=== PATIENT | female | born 1995 | race Caucasian/White ===

== ENCOUNTER → 2016-12-12 | Outpatient (CLI) | payer OTHER ==
[~2016-12-12] MED LIST: IBUP-1222 PO; OXYC-302 PO
== END | disposition home or self-care (01) ==
LOC: CFH 07:39
PROVIDERS: ATTEND Internal Medicine
DX: R42 Dizziness and giddiness (principal); R53.83 Other fatigue
CPT/HCPCS: 36415; 82306; 84439; 84443; 84481

== ENCOUNTER → 2017-01-07 | Outpatient (CLI) | payer OTHER | END | disposition home or self-care (01) | LOC: LAB 16:27 | PROVIDERS: ATTEND Obstetrics & Gynecology | DX: N91.2 Amenorrhea, unspecified (principal) | CPT/HCPCS: 36415; 84702 ==

== ENCOUNTER → 2017-04-22 | Outpatient (CLI) | payer OTHER ==
[2017-04-26 19:06] LABS: AFP VALUE 50.6 ng/mL (.); DIA MoM 0.87 (.); DIA VALUE 164.82 pg/mL (.); DSR (BY AGE) 1 IN 1111 (.); DSR (SECOND TRIMESTER) 1 IN 10000 (.); GESTAT AGE ON COLLECTION DATE 18.4 WEEKS (.); HCG VALUE 24002 mIU/mL (.); MULTIPLE GESTATION No (.); T18 RISK Not increased (.); TEST RESULTS *Screen Negative* (.); UE3 VALUE 1.64 ng/mL (.); WEIGHT 135 lbs (.)
== END | disposition home or self-care (01) ==
LOC: CFH 11:06
PROVIDERS: ATTEND Obstetrics & Gynecology
DX: Z34.80 Encounter for supervision of other normal pregnancy, unspecified trimester (principal)
CPT/HCPCS: 82105; 82677; 84702; 86336

== ENCOUNTER 2017-05-21 11:55 | Emergency (ER) | payer OTHER ==
[~2017-05-21] VITALS: Ht 162.6 cm; Wt 64.0 kg
[2017-05-21 12:38] LABS: HEMATOCRIT 37.2 % (34.6-47.8); HEMOGLOBIN 12.6 g/dL (11.7-16.4); WHITE BLOOD COUNT 9.5 x10^3/uL (3.4-10)
[2017-05-21 12:44] LABS: BLOOD UREA NITROGEN 8 mg/dL (7-18)
[2017-05-21 12:49] LABS: IS PT STATUS REG ER OR PRE ER? YES
[2017-05-21] MEDS ORDERED: PREN1TAB60 PO (13:07)
[2017-05-21 14:44] VITALS: BP 100/64
== END 2017-05-21 14:46 | disposition home or self-care (01) ==
LOC: ED 13:20
DX: O99.412 Diseases of the circulatory system complicating pregnancy, second trimester (principal); Z3A.22 22 weeks gestation of pregnancy; R00.0 Tachycardia, unspecified
CPT/HCPCS: 36415; 71010; 80048; 82040; 84439; 84443; 84484; 85025; 93005

== ENCOUNTER → 2017-06-21 | Outpatient (CLI) | payer OTHER ==
[~2017-06-21] MED LIST changes: +PREN1TAB60 PO
[2017-06-21 13:13] LABS: BASOPHILS # (AUTO) 0.02 x10^3/uL (0-0.1); BASOPHILS % (AUTO) 0 % (0-1); EOSINOPHILS # (AUTO) 0.04 x10^3/uL (0-0.4); EOSINOPHILS % (AUTO) 1 % (1-7); LYMPHOCYTES # (AUTO) 2.02 x10^3/uL (1-3.4); LYMPHOCYTES % (AUTO) 27 % (22-44); MD NO; MEAN CORPUSCULAR HEMOGLOBIN 28.9 pg (27.0-34.8); MEAN CORPUSCULAR HGB CONC 33.2 g/dL (32.4-35.8); MEAN PLATELET VOLUME 8.5 fL (7.4-10.4); MONOCYTES # (AUTO) 0.46 x10^3/uL (0.2-0.8); MONOCYTES % (AUTO) 6 % (2-9); NEUTROPHILS # (AUTO) 5.06 x10^3/uL (1.8-6.8); NEUTROPHILS % (AUTO) 67 % (42-75); PLATELET COUNT 216 x10^3/uL (130-400); RED BLOOD COUNT 4.12 x10^6/uL (3.82-5.3); RED CELL DISTRIBUTION WIDTH 13.1 % (9.6-15.2)
== END ==
LOC: CFH 07:38
PROVIDERS: ATTEND Obstetrics & Gynecology
DX: Z34.80 Encounter for supervision of other normal pregnancy, unspecified trimester (principal); Z3A.00 Weeks of gestation of pregnancy not specified
CPT/HCPCS: 36415; 82950; 85025; 86592

== ENCOUNTER 2017-07-29 09:55 | Inpatient (IN) | payer OTHER ==
[~2017-07-29] VITALS: Ht 162.6 cm; Wt 69.0 kg
[2017-07-29 10:25] VITALS: BP 109/59
[2017-07-29] MEDS ORDERED: LACTATED RINGERS 1,000 ML IVBOLUS ONE (11:30)
[2017-07-29 11:44] LABS: MICROSCOPIC AUTO
[2017-07-29] MEDS ORDERED: ONDANSETRON 2MG/ML, 2ML ONE ×2 (12:04→21:24)
[2017-07-29] MEDS: ONDANSETRON 2MG/ML, 2ML IVPush PRN ×2 (12:12→21:26)
[2017-07-29] MEDS ORDERED: AMPICILLIN 2 GM in SODIUM CHLORIDE 0.9% 100 ML IVPB STA (12:35)
[2017-07-29 12:40] LABS: BASOPHILS # (AUTO) 0.02 x10^3/uL (0-0.1); BASOPHILS % (AUTO) 0 % (0-1); EOSINOPHILS # (AUTO) 0.03 x10^3/uL (0-0.4); EOSINOPHILS % (AUTO) 0 % (1-7); LYMPHOCYTES # (AUTO) 2.06 x10^3/uL (1-3.4); LYMPHOCYTES % (AUTO) 24 % (22-44); MD NO; MEAN CORPUSCULAR HEMOGLOBIN 27.9 pg (27.0-34.8); MEAN CORPUSCULAR HGB CONC 33.3 g/dL (32.4-35.8); MEAN CORPUSCULAR VOLUME 83.8 fL (80-100); MEAN PLATELET VOLUME 7.6 fL (7.4-10.4); MONOCYTES # (AUTO) 0.51 x10^3/uL (0.2-0.8); MONOCYTES % (AUTO) 6 % (2-9); NEUTROPHILS # (AUTO) 5.89 x10^3/uL (1.8-6.8); NEUTROPHILS % (AUTO) 69 % (42-75); PLATELET COUNT 216 x10^3/uL (130-400); RED BLOOD COUNT 3.93 x10^6/uL (3.82-5.3); RED CELL DISTRIBUTION WIDTH 11.8 % (9.6-15.2)
[2017-07-29 12:53] LABS: ALANINE AMINOTRANSFERASE 14 U/L (12-78); ALBUMIN 2.6 g/dL (3.4-5.0); ANION GAP 7 mmol/L (5-15); CHLORIDE 110 mmol/L (98-107); CREATININE 0.42 mg/dL (0.55-1.02)
[2017-07-29 12:55] LABS: ALKALINE PHOSPHATASE 60 U/L (45-117); BILIRUBIN,TOTAL 0.6 mg/dL (0.2-1.0)
[2017-07-29] MEDS ORDERED: BETAMETHASONE 6 MG/ML, 5ML IM ONE (12:59)
[2017-07-29] MEDS ORDERED: MAGNESIUM SULFATE PMX 4GM/100M 100 ML IVPB ONE (13:00)
[2017-07-29] MEDS: BETAMETHASONE 6 MG/ML, 5ML IM SCH (13:05)
[2017-07-29] MEDS ORDERED: MAGNESIUM SULFATE PMX 4GM/100M 100 ML ONE (13:09)
[2017-07-29] MEDS ORDERED: MAGNESIUM SULF. PMX 20GM/500ML 500 ML IV ONE ×2 (13:09→23:50)
[2017-07-29] MEDS: MAGNESIUM SULF. PMX 20GM/500ML 500 ML IV SCH ×2 (13:45→23:52)
[2017-07-29 13:56] LABS: RAPID INFLUENZA A Negative (Negative); RAPID INFLUENZA B Negative (Negative)
[2017-07-29] MEDS ORDERED: NITROFURANTOIN (MACROBID) 100 MG CAPSULE ONE (14:51)
[2017-07-29] MEDS: AMPICILLIN 1 GM in SODIUM CHLORIDE 0.9% 50 ML IVPB SCH ×2 (17:52→22:01)
[2017-07-29] MEDS: NITROFURANTOIN (MACROBID) 100 MG CAPSULE PO SCH (18:21)
[2017-07-30] MEDS: AMPICILLIN 1 GM in SODIUM CHLORIDE 0.9% 50 ML IVPB SCH ×6 (02:03→21:56)
[2017-07-30] MEDS ORDERED: ONDANSETRON 2MG/ML, 2ML ONE (04:27)
[2017-07-30] MEDS: ONDANSETRON 2MG/ML, 2ML IVPush PRN (04:28)
[2017-07-30] MEDS ORDERED: NITROFURANTOIN (MACROBID) 100 MG CAPSULE ONE ×2 (06:06→17:57)
[2017-07-30] MEDS: NITROFURANTOIN (MACROBID) 100 MG CAPSULE PO SCH ×2 (06:07→18:02)
[2017-07-30 07:08] VITALS: BP 104/57
[2017-07-30] MEDS ORDERED: MAGNESIUM SULF. PMX 20GM/500ML 500 ML IV ONE ×2 (10:46→21:15)
[2017-07-30] MEDS: MAGNESIUM SULF. PMX 20GM/500ML 500 ML IV SCH ×2 (11:02→21:21)
[2017-07-30] MEDS: BETAMETHASONE 6 MG/ML, 5ML IM SCH (13:13)
[2017-07-30 19:30] VITALS: BP 99/58
[2017-07-30] MEDS ORDERED: LACTATED RINGERS 1,000 ML IV SCH (20:30)
[2017-07-31] MEDS: AMPICILLIN 1 GM in SODIUM CHLORIDE 0.9% 50 ML IVPB SCH ×2 (02:21→06:00)
[2017-07-31] MEDS ORDERED: MAGNESIUM SULF. PMX 20GM/500ML 500 ML IV ONE (06:24)
[2017-07-31] MEDS ORDERED: NITROFURANTOIN (MACROBID) 100 MG CAPSULE ONE ×2 (06:29→19:11)
[2017-07-31] MEDS: NITROFURANTOIN (MACROBID) 100 MG CAPSULE PO SCH (06:31)
[2017-07-31] MEDS: MAGNESIUM SULF. PMX 20GM/500ML 500 ML IV SCH (07:58)
[2017-07-31 08:14] VITALS: BP 94/57
[2017-07-31] MEDS ORDERED: PRENATAL VIT/IRON/FA 1 EACH TABLET ONE (08:26)
[2017-07-31] MEDS: PRENATAL VIT/IRON/FA 1 EACH TABLET PO SCH (09:33)
[2017-08-01 07:58] VITALS: BP 109/61
[2017-08-01] MEDS ORDERED: PRENATAL VIT/IRON/FA 1 EACH TABLET ONE (08:34)
[2017-08-01] MEDS: PRENATAL VIT/IRON/FA 1 EACH TABLET PO SCH (08:36)
[2017-08-01] MEDS ORDERED: NIFE20CA PO (14:01)
== END 2017-08-01 14:40 | disposition home or self-care (01) | DRG 778 ==
LOC: LDOP 09:55 → LDIP 12:44
PROVIDERS: ADMIT Obstetrics & Gynecology; ATTEND Obstetrics & Gynecology
DX: O60.03 Preterm labor without delivery, third trimester (principal); O99.89 Other specified diseases and conditions complicating pregnancy, childbirth and the puerperium; J45.909 Unspecified asthma, uncomplicated; O99.513 Diseases of the respiratory system complicating pregnancy, third trimester; R19.7 Diarrhea, unspecified; Z3A.32 32 weeks gestation of pregnancy
CPT/HCPCS: 36415; 76805; 80053; 81001; 82731; 83735; 85025; 87081; 87086; 87400; J0290; J0702; J2405; J3475; J7120

== ENCOUNTER 2017-08-04 19:03 | Outpatient (CLI) | payer OTHER ==
[~2017-08-04] VITALS: Ht 162.6 cm; Wt 69.1 kg
[~2017-08-04 19:03] MED LIST changes: +NIFE20CA PO
[2017-08-04] MEDS ORDERED: ACETAMINOPHEN 325 MG TABLET ONE (19:29)
[2017-08-04] MEDS ORDERED: ACETAMINOPHEN 325 MG TABLET PO PRN (19:30)
[2017-08-04 19:50] VITALS: BP 106/53
[2017-08-04 19:56] LABS: MICROSCOPIC AUTO
[2017-08-04 19:56] LABS: AMNISURE NEGATIVE (NEGATIVE)
== END 2017-08-04 20:37 | disposition home or self-care (01) ==
LOC: LDOP 19:03
PROVIDERS: ATTEND Obstetrics & Gynecology
DX: O42.913 Preterm premature rupture of membranes, unspecified as to length of time between rupture and onset of labor, third trimester (principal); Z3A.33 33 weeks gestation of pregnancy
CPT/HCPCS: 59025; 81001; 84112; 87086; 99211; G0463

== ENCOUNTER 2017-08-17 12:34 | Emergency (ER) | payer OTHER ==
[~2017-08-17] VITALS: Ht 162.6 cm; Wt 69.9 kg
[2017-08-17 12:41] VITALS: BP 111/75
[2017-08-17] MEDS ORDERED: ACETAMINOPHEN 500 MG TABLET ONE (13:15)
[2017-08-17] MEDS ORDERED: AMOXICILLIN 500 MG CAPSULE PO ONE (13:30)
[2017-08-17] MEDS ORDERED: ACETAMINOPHEN 500 MG TABLET PO ONE (13:30)
== END 2017-08-17 13:46 | disposition home or self-care (01) ==
LOC: ED 13:00
DX: O26.893 Other specified pregnancy related conditions, third trimester (principal); K08.89 Other specified disorders of teeth and supporting structures; K02.9 Dental caries, unspecified; Z3A.35 35 weeks gestation of pregnancy
CPT/HCPCS: 99283

== ENCOUNTER 2017-08-25 15:57 | Outpatient (CLI) | payer OTHER ==
[~2017-08-25] VITALS: Ht 162.6 cm; Wt 69.0 kg
[2017-08-25 16:02] VITALS: BP 111/71
[2017-08-25 16:51] LABS: CULTURE INDICATED? YES; MICROSCOPIC INDICATED
== END 2017-08-25 18:20 | disposition home or self-care (01) ==
LOC: LDOP 15:57
PROVIDERS: ATTEND Obstetrics & Gynecology
DX: O26.893 Other specified pregnancy related conditions, third trimester (principal); R10.9 Unspecified abdominal pain; Z3A.36 36 weeks gestation of pregnancy
CPT/HCPCS: 59025; 81001; 87086; 99211; G0463

== ENCOUNTER 2017-09-02 10:00 | Observation (INO) | payer OTHER ==
[~2017-09-02] VITALS: Ht 162.6 cm; Wt 69.1 kg
[2017-09-02 11:38] LABS: CULTURE INDICATED? YES; MICROSCOPIC INDICATED
[2017-09-02 11:46] LABS: AMNISURE NEGATIVE (NEGATIVE)
[2017-09-02] MEDS ORDERED: ONDANSETRON ODT 4 MG ONE (12:47)
[2017-09-02] MEDS ORDERED: ONDANSETRON ODT 4 MG PO ONE (13:00)
== END 2017-09-02 14:30 | disposition home or self-care (01) ==
LOC: LDOP 10:00 → LDIP 13:44
PROVIDERS: ADMIT Obstetrics & Gynecology; ATTEND Obstetrics & Gynecology
DX: O26.893 Other specified pregnancy related conditions, third trimester (principal); R10.9 Unspecified abdominal pain; O36.8130 Decreased fetal movements, third trimester, not applicable or unspecified; Z3A.00 Weeks of gestation of pregnancy not specified
CPT/HCPCS: 59025; 76815; 81001; 84112; 87086; 89060; G0378; Q0162; 99211; G0463; Q0114

== ENCOUNTER 2017-09-04 16:18 | Inpatient (IN) | payer OTHER ==
[~2017-09-04] VITALS: Ht 162.6 cm; Wt 70.9 kg
[2017-09-04 16:25] VITALS: BP 117/69
[2017-09-04] MEDS: LACTATED RINGERS 1,000 ML IV SCH (16:45)
[2017-09-04] MEDS ORDERED: OXYTOCIN 30U/ 0.9% NaCL 500ML 500 ML IV ONE (16:45)
[2017-09-04] MEDS ORDERED: OXYTOCIN 30U/ 0.9% NaCL 500ML 500 ML ONE (16:51)
[2017-09-04] MEDS ORDERED: LIDOCAINE 1%, 20ML ONE (16:51)
[2017-09-04] MEDS ORDERED: NEWBORN KIT ONE (16:51)
[2017-09-04] MEDS ORDERED: MISOPROSTOL 200 MCG TABLET ONE (16:51)
[2017-09-04] MEDS ORDERED: FENTANYL PF 100 MCG/2ML IVPush PRN (17:00)
[2017-09-04] MEDS ORDERED: CALCIUM CARBONATE 500 MG TAB.CHEW PO PRN ×2 (17:00→23:30)
[2017-09-04] MEDS ORDERED: ONDANSETRON 2MG/ML, 2ML IVPush PRN (17:00)
[2017-09-04 17:02] VITALS: BP 117/69
[2017-09-04 17:32] LABS: BASOPHILS % (AUTO) 1 % (0-1); EOSINOPHILS # (AUTO) 0.02 x10^3/uL (0-0.4); EOSINOPHILS % (AUTO) 0 % (1-7); LYMPHOCYTES # (AUTO) 2.37 x10^3/uL (1-3.4); LYMPHOCYTES % (AUTO) 27 % (22-44); MD NO; MEAN CORPUSCULAR HEMOGLOBIN 27.3 pg (27.0-34.8); MEAN CORPUSCULAR HGB CONC 33.3 g/dL (32.4-35.8); MEAN CORPUSCULAR VOLUME 81.9 fL (80-100); MEAN PLATELET VOLUME 8.2 fL (7.4-10.4); MONOCYTES # (AUTO) 0.56 x10^3/uL (0.2-0.8); MONOCYTES % (AUTO) 6 % (2-9); NEUTROPHILS # (AUTO) 5.86 x10^3/uL (1.8-6.8); NEUTROPHILS % (AUTO) 66 % (42-75); PLATELET COUNT 213 x10^3/uL (130-400); RED BLOOD COUNT 3.94 x10^6/uL (3.82-5.3); RED CELL DISTRIBUTION WIDTH 12.4 % (9.6-15.2)
[2017-09-04] MEDS ORDERED: LACTATED RINGERS 1,000 ML IV SCH ×2 (17:36→18:19)
[2017-09-04] MEDS ORDERED: FENTANYL/BUPIV./NS/PF 250 ML EPIDCONT SCH ×2 (17:36→18:19)
[2017-09-04] MEDS ORDERED: FENTANYL/BUPIV./NS/PF 250 ML EPIDCONT ONE (17:55)
[2017-09-04] MEDS ORDERED: LIDOCAINE-MPF 2% ,5ML ONE (17:55)
[2017-09-04] MEDS ORDERED: LACTATED RINGERS 1,000 ML IVBOLUS PRN ×2 (18:00→18:30)
[2017-09-04] MEDS ORDERED: EPHEDRINE 50 MG/ML, 1ML IVPush PRN (18:30)
[2017-09-04] MEDS ORDERED: NALOXONE 0.4 MG/ML, 1ML IVPush PRN (18:30)
[2017-09-04] MEDS ORDERED: OXYTOCIN 30U/ 0.9% NaCL 500ML 500 ML IV PRN (20:44)
[2017-09-04] MEDS: OXYTOCIN 30U/ 0.9% NaCL 500ML 500 ML IV SCH (23:06)
[2017-09-04] MEDS ORDERED: ONDANSETRON 2MG/ML, 2ML IV PRN (23:30)
[2017-09-04] MEDS ORDERED: MISOPROSTOL 200 MCG TABLET PR PRN (23:30)
[2017-09-04] MEDS ORDERED: ACETAMINOPHEN 325 MG TABLET PO PRN ×2 (23:30)
[2017-09-04] MEDS ORDERED: BISACODYL 10 MG SUPP PR PRN (23:30)
[2017-09-04] MEDS ORDERED: MAGNESIUM HYDROXIDE 8%, 30ML UDC PO PRN (23:30)
[2017-09-05] VITALS (15 sets, daily range): BP systolic 97–119; BP diastolic 58–74
[2017-09-05] MEDS ORDERED: IBUPROFEN 600 MG TABLET ONE (00:30)
[2017-09-05] MEDS: IBUPROFEN 600 MG TABLET PO PRN ×4 (00:32→21:01)
[2017-09-05] MEDS: OXYTOCIN 30U/ 0.9% NaCL 500ML 500 ML IV SCH ×20 (00:32→21:55)
[2017-09-05] MEDS: LACTATED RINGERS 1,000 ML IV SCH ×3 (00:45→11:37)
[2017-09-05] MEDS: D5%-LACTATED RINGERS 1,000 ML IV SCH ×3 (00:45→08:45)
[2017-09-05] MEDS: PRENATAL VIT/IRON/FA 1 EACH TABLET PO SCH (07:24)
[2017-09-05] MEDS: HYDROcodone/APAP 5/325 TABLET PO PRN ×4 (07:24→21:01)
[2017-09-05] MEDS: DOCUSATE 100 MG CAPSULE PO PRN ×2 (07:24→21:01)
[2017-09-05 07:26] LABS: BASOPHILS # (AUTO) 0.04 x10^3/uL (0-0.1); BASOPHILS % (AUTO) 0 % (0-1); EOSINOPHILS # (AUTO) 0.03 x10^3/uL (0-0.4); EOSINOPHILS % (AUTO) 0 % (1-7); LYMPHOCYTES # (AUTO) 2.39 x10^3/uL (1-3.4); LYMPHOCYTES % (AUTO) 26 % (22-44); MD NO; MEAN CORPUSCULAR HEMOGLOBIN 26.9 pg (27.0-34.8); MEAN CORPUSCULAR HGB CONC 32.9 g/dL (32.4-35.8); MEAN CORPUSCULAR VOLUME 81.6 fL (80-100); MEAN PLATELET VOLUME 7.5 fL (7.4-10.4); MONOCYTES % (AUTO) 5 % (2-9); NEUTROPHILS % (AUTO) 68 % (42-75); PLATELET COUNT 178 x10^3/uL (130-400); RED BLOOD COUNT 3.11 x10^6/uL (3.82-5.3); RED CELL DISTRIBUTION WIDTH 12.5 % (9.6-15.2)
[2017-09-05] MEDS ORDERED: DIPHENHYDRAMINE 50 MG CAPSULE PO ONE (10:30)
[2017-09-05] MEDS ORDERED: ACETAMINOPHEN 325 MG TABLET PO ONE (10:30)
[2017-09-05 16:07] LABS: BASOPHILS # (AUTO) 0.03 x10^3/uL (0-0.1); BASOPHILS % (AUTO) 0 % (0-1); EOSINOPHILS # (AUTO) 0.03 x10^3/uL (0-0.4); EOSINOPHILS % (AUTO) 0 % (1-7); LYMPHOCYTES # (AUTO) 2.53 x10^3/uL (1-3.4); LYMPHOCYTES % (AUTO) 29 % (22-44); MD NO; MEAN CORPUSCULAR HEMOGLOBIN 27.7 pg (27.0-34.8); MEAN CORPUSCULAR HGB CONC 33.3 g/dL (32.4-35.8); MEAN CORPUSCULAR VOLUME 83.2 fL (80-100); MEAN PLATELET VOLUME 7.6 fL (7.4-10.4); MONOCYTES # (AUTO) 0.57 x10^3/uL (0.2-0.8); MONOCYTES % (AUTO) 7 % (2-9); NEUTROPHILS # (AUTO) 5.51 x10^3/uL (1.8-6.8); NEUTROPHILS % (AUTO) 64 % (42-75); PLATELET COUNT 167 x10^3/uL (130-400); RED BLOOD COUNT 3.11 x10^6/uL (3.82-5.3); RED CELL DISTRIBUTION WIDTH 13.4 % (9.6-15.2)
[2017-09-06] MEDS: LACTATED RINGERS 1,000 ML IV SCH ×2 (00:45→05:05)
[2017-09-06] MEDS: HYDROcodone/APAP 5/325 TABLET PO PRN ×3 (05:04→14:27)
[2017-09-06 07:25] VITALS: BP 106/65
[2017-09-06] MEDS: IBUPROFEN 600 MG TABLET PO PRN ×2 (07:35→14:27)
[2017-09-06] MEDS: DOCUSATE 100 MG CAPSULE PO PRN (07:36)
[2017-09-06] MEDS: PRENATAL VIT/IRON/FA 1 EACH TABLET PO SCH (07:36)
[2017-09-06] MEDS ORDERED: IBUP-1222 PO (16:35)
== END 2017-09-06 17:35 | disposition home or self-care (01) | DRG 774 ==
LOC: LDOP 16:18 → LDIP 16:45 → 2NW 09-05 02:03
PROVIDERS: ADMIT Obstetrics & Gynecology; ATTEND Obstetrics & Gynecology
PROC: 10907ZC Drainage of Amniotic Fluid, Therapeutic from Products of Conception, Via Natural or Artificial Opening (ICD-10-PCS; principal; 2017-09-04)
PROC: 10E0XZZ Delivery of Products of Conception, External Approach (ICD-10-PCS; 2017-09-04)
DX: O72.1 Other immediate postpartum hemorrhage (principal); O76 Abnormality in fetal heart rate and rhythm complicating labor and delivery; Z37.0 Single live birth; Z3A.37 37 weeks gestation of pregnancy; Z80.0 Family history of malignant neoplasm of digestive organs; Z80.1 Family history of malignant neoplasm of trachea, bronchus and lung
CPT/HCPCS: 36415; 85025; 86850; 86900; 86923; J2405; J2590; J3010; J7120; J7121; P9016

== ENCOUNTER 2018-07-17 10:48 | Emergency (ER) | payer MEDICAID, OTHER ==
[~2018-07-17] VITALS: Ht 160 cm; Wt 65.0 kg
[2018-07-17] MEDS ORDERED: DIPHENHYDRAMINE 50 MG/ML, 1ML IVPush ONE (11:00)
[2018-07-17] MEDS ORDERED: SODIUM CHLORIDE 0.9% 1,000ML IVBOLUS ONE (11:00)
[2018-07-17] MEDS ORDERED: KETOROLAC 30 MG/1 ML IVPush ONE (11:00)
[2018-07-17] MEDS ORDERED: PROCHLORPERAZINE 5 MG/ML, 2ML IVPush ONE (11:00)
[2018-07-17] MEDS ORDERED: SODIUM CHLORIDE FLUSH 10ML SYR IVF ONE (11:00)
[2018-07-17] MEDS ORDERED: DIPHENHYDRAMINE 50 MG/ML, 1ML ONE (11:01)
[2018-07-17] MEDS ORDERED: KETOROLAC 30 MG/1 ML ONE (11:01)
[2018-07-17] MEDS ORDERED: PROCHLORPERAZINE 5 MG/ML, 2ML ONE (11:01)
--- NOTE | 2018-07-17 11:10 | NUR ---
PT REPORTS A HEADACHE AND LEFT SIDED BLURRY VISION. PT ALSO FELT SOME NUMNESS ON HER LEFT ARM. PT SEEN BY NATALYA CHOUDHARY. NO CODE NEURO AT THIS TIME. LAB IN ROOM. FAMILY IN ROOM. CALL LIGHT IN PLACE. WILL CONTINUE TO MONITOR.
[2018-07-17 11:25] LABS: BASOPHILS # (AUTO) 0.03 x10^3/uL (0-0.1); BASOPHILS % (AUTO) 0 % (0-1); EOSINOPHILS # (AUTO) 0.06 x10^3/uL (0-0.4); EOSINOPHILS % (AUTO) 1 % (1-7); LYMPHOCYTES # (AUTO) 2.21 x10^3/uL (1-3.4); LYMPHOCYTES % (AUTO) 35 % (22-44); MD NO; MEAN CORPUSCULAR HEMOGLOBIN 27.3 pg (27.0-34.8); MEAN CORPUSCULAR HGB CONC 33.3 g/dL (32.4-35.8); MEAN CORPUSCULAR VOLUME 81.9 fL (80-100); MEAN PLATELET VOLUME 7.8 fL (7.4-10.4); MONOCYTES # (AUTO) 0.45 x10^3/uL (0.2-0.8); MONOCYTES % (AUTO) 7 % (2-9); NEUTROPHILS # (AUTO) 3.66 x10^3/uL (1.8-6.8); NEUTROPHILS % (AUTO) 57 % (42-75); PLATELET COUNT 307 x10^3/uL (130-400); RED BLOOD COUNT 4.95 x10^6/uL (3.82-5.3); RED CELL DISTRIBUTION WIDTH 15.4 % (9.6-15.2)
--- NOTE | 2018-07-17 11:25 | NUR ---
PT IS IN CT
[2018-07-17 11:34] LABS: ANION GAP 8 mmol/L (5-15); CALCIUM 9.1 mg/dL (8.5-10.1); CHLORIDE 110 mmol/L (98-107)
--- NOTE | 2018-07-17 11:52 | NUR ---
REPORT GIVEN TO RADHA GARAY
--- NOTE | 2018-07-17 12:06 | NUR ---
REPORT RECEIVED FROM RADHA CLEMENTE. PT IS A&O, RESPS EVEN AND UNLABORED. UP TO BR WITH STEADY GAIT, NOW BACK IN BED. DC ORDERS RECEIVED.
[2018-07-17 12:20] VITALS: BP 101/59
--- NOTE | 2018-07-17 12:40 | NUR ---
PT REPORTS SYMPTOMS HAVE RESOLVED. PT A&OX4, RESPS EVEN AND UNLABORED. NEURO INTACT. PT AND SPOUSE GIVEN DC INSTRUCTIONS. PT EDUCATED REGARDING PCP F/U RECCS. PT INSTRUCTED NOT TO DRIVE TODAY D/T MEDS GIVEN. PT AMB TO DC DESK WITH STEADY GAIT ACCOMPANIED BY SPOUSE AND FATHER. NADN AT DC.
== END 2018-07-17 12:41 | disposition home or self-care (01) ==
LOC: ED 12:12
DX: R51 Headache (principal); R42 Dizziness and giddiness; R20.0 Anesthesia of skin; Z90.89 Acquired absence of other organs
CPT/HCPCS: 36415; 70450; 80048; 82040; 82962; 84703; 85025; 93005; 96361; 96374; 96375; 99284; J0780; J1200; J1885; J7030